=== PATIENT | male | born 2005 | race Caucasian/White ===

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

== ENCOUNTER 2023-03-10 00:05 | Emergency (ER) | payer MEDICAID, SELFPAY ==
--- NOTE | 2023-03-10 | ECG_ITS ---
Test Reason : sob Blood Pressure : / mmHG Vent. Rate : 087 BPM Atrial Rate : 087 BPM P-R Int : 138 ms QRS Dur : 088 ms QT Int : 338 ms P-R-T Axes : 068 073 051 degrees QTc Int : 406 ms Normal sinus rhythm Normal ECG When compared with ECG of 26-JUL-2021 20:47, No significant change was found Referred By: Generic ED Physician Electronically Signed By:SHENG ROSADO MD
--- NOTE | ~2023-03-10 | XR_ITS ---
EXAMINATION: XR ABDOMEN KUB CLINICAL INDICATION: Constipated COMPARISON: 01/25/2022 TECHNIQUE: AP view of the abdomen. FINDINGS: Bowel gas pattern is nonobstructive. Moderate amount of stool is present. No suspicious calcifications are seen. There is limited assessment for free air with supine positioning. No suspicious calcifications are identified. Included lung bases are well-aerated. No acute osseous findings are seen. XR/XR KUB IMPRESSION: Moderate volume of stool. Nonobstructive bowel gas pattern.
[2023-03-10 00:24] LABS: Hematocrit 41.1 % (42.0-52.0); Hemoglobin 13.5 g/dl (14.0-18.0); Mean Corpuscular HGB Conc 32.8 g/dl (31.0-36.0); Mean Corpuscular Hemoglobin 28.1 pg (27.0-33.0); Mean Corpuscular Volume 85.6 fL (80.0-98.0); Mean Platelet Volume 9.6 fL (9.4-12.4); Platelet Count 219 X10*3/uL (160-400); Red Cell Distribution Width 13.3 % (11.0-16.0); White Blood Count 7.5 X10*3/uL (4.8-10.8)
[2023-03-10 00:29] VITALS: BP 113/69; PULSE 92; RESP 16; TEMP 37; O2SAT 98; BMI 17.6
[2023-03-10 00:46] LABS: Alanine Aminotransferase 9 U/L (0-40); Albumin Level 4.5 g/dL (3.5-5.0); Alkaline Phosphatase 76 U/L (39-117); Anion Gap 10 (12-20); Aspartate Amino Transferase 17 U/L (5-37); Blood Urea Nitrogen 12 mg/dL (9-16); Calcium 9.8 mg/dL (8.4-10.2); Carbon Dioxide 29 mmol/L (22-29); Chloride 105 mmol/L (96-108); Creatinine Clr Calc Pharmacy 91.1; Estimated Glomerular Filt Rate > 60; Glucose Random 170 mg/dL (60-115); Sodium 140 mmol/L (135-145)
[2023-03-10 00:47] LABS: Troponin-I High Sensitivity < 2.7 ng/L (<3.5-35.0)
[2023-03-10 04:54] VITALS: BP 122/75; PULSE 69; RESP 16; TEMP 36.4; O2SAT 99
--- OUTSIDE RECORDS SUMMARY | 2023-03-10 05:03 | XMS_ITS | Continuity of Care Document ---
Author Name Unknown Organization [facility] Gastro enterology Address Unknown Care Team Providers Care Chancery Clerk Name Role Phone Bisi Vega MD Primary Care Physician [id number] Date(s): 02/27/22 - 04/12/22 [facility] Attending Physician: Je Jackson MD Referring Physician: Bisi Vega MD Allergies, Adverse Reactions, Alerts No Known Allergies Medications Clonidine 0 Refills, Maintenance, 11/27/20 9:19:00 EST, Partial fill upon patient request if the prescriptionis for a schedule II opioid drug. Start Date: 11/27/20 Status: Ordered Dulcolax 5 mg oral enteric coated tablet 3 tablet = 15 mg, By Mouth, Once, Tale 3 Tablets as part of colonoscopy prep, 1 additional tablet in case patient loses one, # 4 tablet, 0 Refills, Soft Stop, 12/14/20 13:36:00 EST, [facility]/pharmacy #[id number], Partial fill upon patient request if the prescrip... Start Date: 12/14/20 Status: Ordered Dulcolax 5 mg oral enteric coated tablet 3 tablet = 15 mg, By Mouth, Once, # 3 tablet, 0 Refills, Soft Stop, 12/20/20 15:58:00 EST, [facility]pharmacy #[id number], Partial fill upon patient request if the prescription is for a schedule II opioid drug.,174.32, cm, 11/27/20 9:25:00 EST, Height, 49.98, kg... Start Date: 12/20/20 Status: Ordered Exlax chocholate squares - Senna Exlax chocholate squares - Senna, See Instructions, # 60 tablet, Refills 0, Tot. Refills 0, Maintenance, 1 square 1-2 times a day, 11/27/20 15:54:00 EST, Compound, 174.32, cm, 11/27/20 9:25:00 EST, Height, 49.98, kg, 11/27/20 9:25:00 EST, Dry Weight Start Date: 11/27/20 Status: Ordered guanFACINE 1 mg oral tablet See Instructions, Take 1/2 tablet By Mouth twice a day in am and at 3 pm, # 30 tablet, Refills 0, Tot. Refills 0, Maintenance, 10/23/16 13:05:13, Instructions Replace Required Details, Route to Pharmacy Electronically, [id number]... Start Date: 10/23/16 Status: Ordered MiraLax oral powder for reconstitution See Instructions, 255 Gm By Mouth Daily for one day, mixed in 2 quarts clear liquid for bowel prep,# 255 Gm, 0 Refills, Maintenance, 12/14/20 13:36:00 EST, [facility]/pharmacy #[id number], Partial fill upon patient request if the prescription is for a schedule II... Start Date: 12/14/20 Status: Ordered Omeprazole By Mouth, Daily, 0 Refills, Maintenance, 11/27/20 9:19:00 EST, Partial fill upon patient request ifthe prescription is for a schedule II opioid drug. Start Date: 11/27/20 Status: Ordered omeprazole 20 mg oral enteric coated capsule 1 capsule = 20 mg, By Mouth, 2 times a day, # 28 capsule, 6 Refills, Maintenance, 01/02/21 20:53:00EST, EC Capsule, [id number], Partial fill upon patient request if the prescription is for aschedule II opioid drug., 174.32, cm, 11/27/20 9:25... Start Date: 01/02/21 Stop Date: 04/10/21 Status: Ordered Prevacid SoluTab 30 mg oral tablet, disintegrating 1 tablet = 30 mg, By Mouth, Daily, # 30 tablet, 0 Refills, Maintenance, 11/27/20 15:54:00 EST, DIS Tablet, [id number], Partial fill upon patient request if the prescription is for a schedule II opioid drug., 174.32, cm, 11/27/20 9:25:00 EST, H... Start Date: 11/27/20 Status: Ordered Problem List Condition Effective Dates Status Health Status Inform ant Weight loss(Confirmed) Active
--- OUTSIDE RECORDS SUMMARY | 2023-03-10 05:04 | XMS_ITS | Continuity of Care Document ---
Author Name Unknown Organization [facility] Gastro enterology Address Unknown Care Team Providers Care Big Data Solutions Architect Name Role Phone Bisi Vega MD [id number] Date(s): 03/13/22 - 04/26/22 [facility]astroenter[facility] Attending Physician: Je Jackson MD Allergies, Adverse Reactions, Alerts No Known [...] 0 Refills, Soft Stop, 12/14/20 13:36:00 EST, [id number], Partial fill upon patient [...] Replace Required Details, Route to Pharmacy Electronically, [id number]... Start Date: 10/23/16 Status: Ordered MiraLax oral powder for reconstitution See Instructions, 255 Gm By Mouth Daily for one day, mixed in 2 quarts clear liquid for bowel prep,# 255 Gm, 0 Refills, Maintenance, 12/14/20 13:36:00 EST, [facility]/pharmacy #[id number], Partial fill upon patient request if [...]
--- OUTSIDE RECORDS SUMMARY | 2023-03-10 05:04 | XMS_ITS | Continuity of Care Document ---
Author Name Unknown Organization [facility] Gastro enterology Address [address] [place] [address]- Care Team Providers Care Pharmacist Apprentice Name Role Phone Bisi Vega MD Primary Care Physician [place] [facility] [place] [facility] [place]14[place] - 01/13/21 [facility]astroenter[facility] [address], [place] [address] Allergies, Adverse Reactions, Alerts No Known Medication Allergies Substance Reaction Severity Status NKA Active Medications amoxicillin 500 mg oral capsule 2 capsule = 1,000 mg, By Mouth, 2 times a day, for 14 days, # 56 capsule, 0 Refills, Acute 01/17/2120:53:00 EST, 01/02/21 20:53:00 EST, [id number], Partial fill upon patient request if the prescription is for a schedule II opioid drug., 174.3... Start Date: 01/02/21 Stop Date: 01/16/21 Status: Ordered Clonidine 0 Refills, Maintenance, 11/27/20 9:19:00 EST, [...] Dry Weight Start Date: 11/27/20 Status: Ordered Flagyl 500 mg oral tablet 1 tablet = 500 mg, By Mouth, Every 8 hours, for 14 days, # 42 tablet, 0 Refills, Acute 01/16/21 20:53:00 EST, 01/02/21 20:53:00 EST, Tablet, [facility]/pharmacy #[id number], Partial fill upon patient request if the prescription is for a schedule II opioid drug., 1... Start Date: 01/02/21 Stop Date: 01/16/21 Status: Ordered guanFACINE 1 mg oral tablet See Instructions, Take 1/2 tablet By Mouth twice a day in am and at 3 pm, # 30 tablet, Refills 0, Tot. Refills 0, Maintenance, 10/23/16 13:05:13, Instructions Replace Required Details, Route to Pharmacy Electronically, [id number]... Start Date: 10/23/16 Status: Ordered MiraLax oral powder for reconstitution = 17 Gm, By Mouth, Daily, for 30 days, # 255 Gm, 6 Refills, Hard Stop 06/25/21 15:54:00 EDT, 11/27/20 15:54:00 EST, [facility]/pharmacy #[id number], Partial fill upon patient request if the prescription is for a schedule II opioid drug., 174.32, cm, 11/27/20 9:25:... Start Date: 11/27/20 Stop Date: 06/25/21 Status: Ordered MiraLax oral powder for reconstitution See Instructions, 255 Gm By Mouth Daily for one day, mixed in 2 quarts clear liquid for bowel prep,# 255 Gm, 0 Refills, Maintenance, 12/14/20 13:36:00 EST, [id number], Partial fill [...]
--- OUTSIDE RECORDS SUMMARY | 2023-03-10 05:04 | XMS_ITS | Continuity of Care Document ---
Author Name Unknown Organization [facility] Gastro enterology Address [address] [place] [address]- Care Team Providers Care Can Filler Name Role Phone Bisi Vega MD Primary Care Physician Encounter [facility] [place] Date(s): 01/02/21 - 02/01/21 [facility]enter[facility] [address], [place] [address] Allergies, Adverse Reactions, Alerts No Known Medication Allergies Substance Reaction Severity Status NKA Active Medications Clonidine 0 Refills, Maintenance, 11/27/20 9:19:00 [...] Replace Required Details, Route to Pharmacy Electronically, [id number]... Start Date: 10/23/16 Status: Ordered MiraLax oral powder for reconstitution = 17 Gm, By Mouth, Daily, for 30 days, # 255 Gm, 6 Refills, Hard Stop 06/25/21 15:54:00 EDT, 11/27/20 15:54:00 EST, [facility]/pharmacy #[id number], Partial fill upon patient request [...] Refills, Maintenance, 11/27/20 15:54:00 EST, DIS Tablet, [facility]/pharmacy #[id number], Partial fill upon patient request if the prescription is for a schedule II opioid drug., 174.32, cm, 11/27/20 9:25:00 EST, H... Start Date: 11/27/20 Status: Ordered Problem List Condition Effective Dates Status Health Status Inform ant Weight loss(Confirmed) Active
--- OUTSIDE RECORDS SUMMARY | 2023-03-10 05:04 | XMS_ITS | Continuity of Care Document ---
Author Name Unknown Organization [facility] ter Address [address] [place] [address]- Care Team Providers Care Leather Sponger Name Role Phone Bisi Vega MD Primary Care Physician Encounter [facility] [place](s): 12/31/20 - 12/31/[address] [address] Discharge Disposition: A-D/C Home Attending Physician: Je Jackson MD Admitting Physician: Je Jackson MD Referring Physician: Je Jackson MD Allergies, Adverse Reactions, Alerts No Known Medication [...] Replace Required Details, Route to Pharmacy Electronically, [id number]... Start Date: 10/23/16 Status: Ordered MiraLax oral powder for reconstitution = 17 Gm, By Mouth, Daily, for 30 days, # 255 Gm, 6 Refills, Hard Stop 06/25/21 15:54:00 EDT, 11/27/20 15:54:00 EST, [id number], Partial fill upon patient [...] opioid drug. Start Date: 11/27/20 Status: Ordered Prevacid SoluTab 30 mg oral tablet, disintegrating 1 tablet = 30 mg, By Mouth, Daily, # 30 tablet, 0 Refills, Maintenance, 11/27/20 15:54:00 EST, DIS Tablet, [id number], Partial fill upon patient request if the prescription is for a schedule II opioid drug., 174.32, cm, 11/27/20 9:25:00 EST H... Start Date: 11/27/20 Status: Ordered Problem List Condition Effective Dates Status Health Status Inform ant Weight loss(Confirmed) Active Vital Signs Most recent to oldest [Reference Range]: 1 2 3 Weight 49.6 kg (12/31/20 9:45 AM) Oxygen Saturation [94-100 %] 100 % (12/31/20 12:18 PM) 100 % (12/31/20 11:58 AM) 100 % (12/31/20 11:55 AM) Pulse Rate [55-90 bpm] 108 bpm *H* (12/31/20 9:45 AM) Blood Pressure [80-130/50-80 mm Hg] 110/78mm Hg (12/31/20 12:11 PM) 122/84mm Hg (12/31/20 11:34 AM) 136/75mm Hg *H* (12/31/20 9:45 AM) Respiratory Rate [16-30 br/min] 15 br/min *L* (12/31/20 11:55 AM) 21 br/min (12/31/20 11:34 AM) 20 br/min (12/31/20 9:45 AM) Temperature [96.8-100.4 DegF] 98.3 DegF (12/31/20 9:45 AM) Mode of Delivery (Oxygen) Room air (12/31/20 9:45 AM) Blood pressure sites Arm, left (12/31/20 9:45 AM) Temperature Route Oral (12/31/20 12:11 PM) Oral (12/31/20 9:45 AM) Dry Weight 49.6 kg (12/31/20 9:45 AM)
--- OUTSIDE RECORDS SUMMARY | 2023-03-10 05:04 | XMS_ITS | Continuity of Care Document ---
Author Name Unknown Organization [facility] Address [address] [place] [address]- Care Team Providers Care Patient Access Manager Name Role Phone Bisi Vega MD Primary Care Physician En[place] [facility] [place](s): 01/10/21 - 02/09/21 [facility] [address] [place], [place] [address] Allergies, Adverse Reactions, Alerts No Known [...] Replace Required Details, Route to Pharmacy Electronically, [id number]... Start Date: 10/23/16 Status: Ordered MiraLax oral powder for reconstitution = 17 Gm, By Mouth, Daily, for 30 days, # 255 Gm, 6 Refills, Hard Stop 06/25/21 15:54:00 EDT, 11/27/20 15:54:00 EST, [facility]/pharmacy #[id number], Partial [...] Refills, Maintenance, 11/27/20 15:54:00 EST, DIS Tablet, [facility]/pharmacy #[id number], Partial fill upon patient request if the prescription is for a schedule II opioid drug., 174.32, cm, 11/27/20 9:25:00 EST, H... Start Date: 11/27/20 Status: Ordered Problem List Condition Effective Dates Status Health Status Inform ant Weight loss(Confirmed) Active
--- OUTSIDE RECORDS SUMMARY | 2023-03-10 05:04 | XMS_ITS | Continuity of Care Document ---
Author Name Unknown Organization [facility] Address [address] [place] [address]- Care Team Providers Care Deputy Sheriff Custody Name Role Phone Bisi Vega MD Primary Care Physician [place] [facility] [place] [facility] [address] [place], [place] [address] Allergies, Adverse Reactions, Alerts [...] Replace Required Details, Route to Pharmacy Electronically, [id number]... Start Date: 10/23/16 Status: Ordered MiraLax oral powder for reconstitution = 17 Gm, By Mouth, Daily, for 30 days, # 255 Gm, 6 Refills, Hard Stop 06/25/21 15:54:00 EDT, 11/27/20 15:54:00 EST, [facility]/pharmacy #[id number], Partial fill upon patient request [...] 11/27/20 15:54:00 EST, DIS Tablet, [facility]/pharmacy #[id number], Partial fill upon patient request if the prescription is for a schedule II opioid drug., 174.32, cm, 11/27/20 9:25:00 EST, H... Start Date: 11/27/20 Status: Ordered Problem List Condition Effective Dates Status Health Status Inform ant Weight loss(Confirmed) Active
--- OUTSIDE RECORDS SUMMARY | 2023-03-10 05:04 | XMS_ITS | Continuity of Care Document ---
Author Name Unknown Organization [facility] ter Address [address] [place] [address]- Care Team Providers Care Trailer Rental Clerk Name Role Phone Bisi Vega MD Primary Care Physician [phone] Encounter [facility] [place] Date(s): 11/30/20 - 01/16/[address] [address] Attending Physician: Je Jackson MD Admitting Physician: Je Jackson MD Allergies, Adverse Reactions, [...] Replace Required Details, Route to Pharmacy Electronically, [id number]... Start Date: 10/23/16 Status: Ordered MiraLax oral powder for reconstitution = 17 Gm, By Mouth, Daily, for 30 days, # 255 Gm, 6 Refills, Hard Stop 06/25/21 15:54:00 EDT, 11/27/20 15:54:00 EST, [facility]/pharmacy #[id number], Partial fill upon patient request [...] Refills, Maintenance, 11/27/20 15:54:00 EST, DIS Tablet, [facility]/pharmacy #[id number], Partial fill upon patient request if the prescription is for a schedule II opioid drug., 174.32, cm, 11/27/20 9:25:00 EST, H... Start Date: 11/27/20 Status: Ordered Problem List Condition Effective Dates Status Health Status Inform ant Weight loss(Confirmed) Active
--- OUTSIDE RECORDS SUMMARY | 2023-03-10 05:04 | XMS_ITS | Continuity of Care Document ---
Author Name Unknown Organization [facility] Address [address] [place] [address]- Care Team Providers Care Faa Certified Powerplant Mechanic Name Role Phone Bisi Vega MD Primary Care Physician [place] [facility] [place] 12/27/20 [facility] [address] [place], [place] [address] Attending Physician: Rehan Bhatia Admitting Physician: Rehan Bhatia Referring Physician: Admtr, [id number] Allergies, Adverse Reactions, Alerts No Known Medication [...] Replace Required Details, Route to Pharmacy Electronically, [id number]... Start Date: 10/23/16 Status: Ordered MiraLax oral powder for reconstitution = 17 Gm, By Mouth, Daily, for 30 days, # 255 Gm, 6 Refills, Hard Stop 06/25/21 15:54:00 EDT, 11/27/20 15:54:00 EST, [facility]/pharmacy #[id number], Partial fill upon patient request if [...]
--- OUTSIDE RECORDS SUMMARY | 2023-03-10 05:04 | XMS_ITS | Continuity of Care Document ---
Author Name Unknown Organization [facility] Address Unknown Care Team Providers Care Molder Wax Ball Name Role Phone Bisi Vega MD Primary Care Physician [phone] Encounter [facility] [place] Date(s): 03/27/22 - 04/26/22 [facility] Attending Physician: Rehan Bhatia Admitting Physician: Rehan Bhatia Referring Physician: Rehan Bhatia Allergies, Adverse Reactions, Alerts No Known Allergies [...] 0 Refills, Soft Stop, 12/14/20 13:36:00 EST, [facility]/pharmacy #[id number], Partial fill upon patient request [...] Replace Required Details, Route to Pharmacy Electronically, [id number]... Start Date: 10/23/16 Status: Ordered MiraLax oral powder for reconstitution See Instructions, 255 Gm By Mouth Daily for one day, mixed in 2 quarts clear liquid for bowel prep,# 255 Gm, 0 Refills, Maintenance, 12/14/20 13:36:00 EST, [facility]/pharmacy #[id number], Partial fill upon patient request [...]
--- NOTE | 2023-03-10 05:38 | ED.GENADULT ---
HPI - General Adult General Chief complaint: General Medical Stated complaint: Chest pain x 1 week/Abd pain Time Seen by Provider: 03/10/23 05:38 Source: patient Mode of arrival: ambulatory Limitations: no limitations History of Present Illness HPI narrative: Patient history of constipation cannabis abuse anxiety comes here for diffuse abdominal pain and epigastric pain and chest pain for last 1 week last bowel movement was 3 days ago no nausea no vomiting no fever no chills Related Data Previous Rx's Medication Instructions Recorded omeprazole 20 mg capsule,delayed 20 mg PO DAILY #30 caps 07/26/21 release prednisone 20 mg tablet 20 mg PO DAILY 5 days #5 tabs 01/25/22 tamsulosin 0.4 mg capsule (Flomax) 0.4 mg PO DAILY #14 caps 01/25/22 polyethylene glycol 3350 17 17 g PO DAILY #510 grams 03/10/23 gram/dose oral powder (Miralax) Allergies Allergy/AdvReac Type Severity Reaction Status Date / Time No Known Allergies Allergy Verified 11/17/20 23:19 Review of Systems Review of Systems: Yes all other systems are reviewed and are negative [facility] Past Medical History Medical History No known health problems Patient denies significant medical history Social History Social History Smoked in Last 30 Days: No Use of substances other than those prescribed or required for medical reasons: No Advance Directives: No Advance Directives Information Provided: Yes Physical Exam ED Vital Signs: Vital Signs - 24 hr 03/10/23 00:29 03/10/23 04:54 Temperature 98.6 F 97.6 F Pulse Rate 92 69 Respiratory Rate 16 16 Blood Pressure 113/69 122/75 Pulse Oximetry 98 99 Oxygen Delivery Method Room Air Room Air BMI result Body Mass Index 17.6 Appearance: Alert. Oriented X3. No acute distress. ENT: Pharynx normal. Oral Mucosa moist Neck: Normal inspection. Neck supple. CVS: Normal heart rate and rhythm. Pulses normal. Respiratory: No respiratory distress. Equal air entry bilateral, no wheezing/rales/rhonchi Abdomen: Soft mild diffuse tenderness no rebound transfer cart Bowel sounds are present, no mass palpable, no CVA tenderness Skin: Skin warm and dry. Normal skin color. Normal skin turgor. Extremities: No lower extremity edema. No calf tenderness Neuro: Oriented X 3. Medications Administered Discontinued Medications Generic Name Dose Route Start Last Admin Trade Name Lisa PRN Reason Stop Dose Admin Bisacodyl 10 mg 03/10/23 06:03 03/10/23 06:15 Bisacodyl 5 Mg Tablet. PO 03/10/23 06:04 10 mg ONCE ONE Administration Magnesium Hydroxide 30 ml 03/10/23 06:03 03/10/23 06:16 Milk Of Magnesia 30 Ml Oral.Susp PO 03/10/23 06:04 30 ml ONCE ONE Administration Medical Decision Making Medical Decision Making [facility] Narrative: Patient with constipation and likely from constipation given MiraLax discharge patient home Lab Data [facility] Lab Attestation statement: I reviewed the patient's lab results. 03/10/23 00:15 03/10/23 00:15 Labs: Lab Results 03/10/23 03/10/23 03/10/23 Range/Units 00:15 00:15 00:15 WBC 7.5 (4.8-10.8) X10*3/uL RBC 4.80 (4.60-5.80) X10*6/uL Hgb 13.5 L (14.0-18.0) g/dl Hct 41.1 L (42.0-52.0) % MCV 85.6 (80.0-98.0) fL MCH 28.1 (27.0-33.0) pg MCHC 32.8 (31.0-36.0) g/dl RDW 13.3 (11.0-16.0) % Plt Count 219 (160-400) X10*3/uL MPV 9.6 (9.4-12.4) fL Absolute Nucleated RBC 0.000 (0.0-0.012) X10*3/uL Nucleated RBC % (auto) 0.0 (0.0-0.2) /100WBC Sodium 140 (135-145) mmol/L Potassium 4.0 (3.3-5.1) mmol/L Chloride 105 (96-108) mmol/L Carbon Dioxide 29 (22-29) mmol/L Anion Gap 10 L (12-20) BUN 12 (9-16) mg/dL Creatinine 0.97 (0.5-1.4) mg/dL Estim Creat Clear Calc 91.1 Estimated GFR > 60 Random Glucose 170 H (60-115) mg/dL Calcium 9.8 D (8.4-10.2) mg/dL Total Bilirubin 1.0 (0.0-1.0) mg/dL AST 17 (5-37) U/L ALT 9 (0-40) U/L Alkaline Phosphatase 76 (39-117) U/L Troponin I High Sens < 2.7 (<3.5-35.0) ng/L Total Protein 7.0 (6.5-8.0) g/dL Albumin 4.5 (3.5-5.0) g/dL Urine Color Urine Appearance Urine pH (5.0-9.0) Ur Specific [place] (1.005-1.025) Urine Protein (Neg-Trace) mg/dL Urine Glucose (UA) (Negative) mg/dL Urine Ketones (Negative) mg/dL Urine Blood (Negative) Urine Nitrite (Negative) Ur Leukocyte Esterase (Negative) Urine RBC (0-2) /HPF Urine WBC (0-5) /HPF Ur Squamous Epith Cells (0-2) /HPF Urine Bacteria (None Seen) Hyaline Casts (0-2) /LPF 03/10/23 Range/Units 06:01 WBC (4.8-10.8) X10*3/uL RBC (4.60-5.80) X10*6/uL Hgb (14.0-18.0) g/dl Hct (42.0-52.0) % MCV (80.0-98.0) fL MCH (27.0-33.0) pg MCHC (31.0-36.0) g/dl RDW (11.0-16.0) % Plt Count (160-400) X10*3/uL MPV (9.4-12.4) fL Absolute Nucleated RBC (0.0-0.012) X10*3/uL Nucleated RBC % (auto) (0.0-0.2) /100WBC Sodium (135-145) mmol/L Potassium (3.3-5.1) mmol/L Chloride (96-108) mmol/L Carbon Dioxide (22-29) mmol/L Anion Gap (12-20) BUN (9-16) mg/dL Creatinine (0.5-1.4) mg/dL Estim Creat Clear Calc Estimated GFR Random Glucose (60-115) mg/dL Calcium (8.4-10.2) mg/dL Total Bilirubin (0.0-1.0) mg/dL AST (5-37) U/L ALT (0-40) U/L Alkaline Phosphatase (39-117) U/L Troponin I High Sens (<3.5-35.0) ng/L Total Protein (6.5-8.0) g/dL Albumin (3.5-5.0) g/dL Urine Color Yellow Urine Appearance Clear Urine pH 6.5 (5.0-9.0) Ur Specific [place] >= 1.030 H (1.005-1.025) Urine Protein 30 (1+) H (Neg-Trace) mg/dL Urine Glucose (UA) Negative (Negative) mg/dL Urine Ketones Trace (Negative) mg/dL Urine Blood Negative (Negative) Urine Nitrite Negative (Negative) Ur Leukocyte Esterase Negative (Negative) Urine RBC 0-2 (0-2) /HPF Urine WBC 0-5 (0-5) /HPF Ur Squamous Epith Cells 0-2 (0-2) /HPF Urine Bacteria None Seen (None Seen) Hyaline Casts 0-2 (0-2) /LPF Independent Interpretation I performed an independent interpretation of an: EKG Interpretation: Normal sinus rhythm heart rate 87 beats per minute normal interval normal axis no acute vision or acute skin Discharge Plan Discharge Clinical Impression: Constipation Patient Disposition: Home, Self-Care Instructions: Constipation (ED) Additional Instructions: Drink plenty of fluids Stool softener as advised Follow with PCP Prescriptions: New polyethylene glycol 3350 [Miralax] 17 gram/dose powder 17 g PO DAILY Qty: 510 0RF No Action omeprazole 20 mg capsule,delayed release(DR/EC) 20 mg PO DAILY Qty: 30 0RF tamsulosin [Flomax] 0.4 mg capsule 0.4 mg PO DAILY Qty: 14 0RF prednisone 20 mg tablet 20 mg PO DAILY 5 Days Qty: 5 0RF Stand Alone Forms: Work/School Release
[2023-03-10 06:08] LABS: Appearance Urine Clear; Color Urine Yellow; Glucose Urine UA Negative (Negative); Leukocyte Esterase Urine Negative (Negative); Nitrite Urine Negative (Negative); PH 6.5 (5.0-9.0); Specific Gravity - Urine >= 1.030 (1.005-1.025); UMIC TRIGGER UACC YES; Urine Blood Negative (Negative); Urine Ketones Trace mg/dL (Negative); Urine Protein 30 (1+) mg/dL (Neg-Trace)
[2023-03-10 06:13] LABS: Bacteria Urine None Seen (None Seen); Hyaline Casts Urine 0-2 /LPF (0-2); RBC Urine 0-2 /HPF (0-2); Squamous Epithelial Cell Urine 0-2 /HPF (0-2); WBC Urine 0-5 /HPF (0-5)
[2023-03-10] MEDS: bisacodyL 5 MG TABLET.DR 10 MG PO (06:15)
[2023-03-10] MEDS: Milk of Magnesia 30 ML ORAL.SUSP PO (06:16)
== END 2023-03-10 07:08 | disposition home or self-care (01) ==
PROVIDERS: Emergency Provider Internal Medicine
DX: R07.89 Other chest pain (principal); K59.00 Constipation, unspecified; F12.10 Cannabis abuse, uncomplicated; R06.02 Shortness of breath; F41.9 Anxiety disorder, unspecified; Z79.899 Other long term (current) drug therapy
CPT/HCPCS: 36415; 74018; 80053; 81001; 84484; 85027; 93005; 99283; 99284

== ENCOUNTER → 2023-09-28 13:36 | Outpatient (BNVA) | payer MEDICAID, SELFPAY | PROVIDERS: Visit Provider Internal Medicine Cardiovascular Disease ==

== ENCOUNTER 2023-10-05 09:52 | Outpatient (AMB) | payer MEDICAID, SELFPAY ==
[2023-10-05 09:54] VITALS: BP 96/60; PULSE 70; BMI 19.3
--- NOTE | 2023-10-05 09:54 | MHC.OFFVIS ---
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 Generally healthy and does not have any major comorbidities. No history of any previously diagnosed cardiac issues. He states that he frequently gets chest pains randomly. Can happen any time. Sometimes also feels as though he can breathe normally. 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 Another occasion when he was working elsewhere and in a standing position. Not clear if it is orthostatic hypotension or not. He has been referred here for further evaluation. No major family history with regard to cardiac issues. No history specifically of any sudden cardiac in family. Otherwise, patient states that he does need to drink too much and per PCP note, there is mention that he might have been dehydrated on one occasion. Also, per PCP notes, also has anxiety and depression. [facility] Medical History (Updated 10/05/23 @ 10:04 by Bucky Browning MD) No known health problems Patient denies significant medical history Surgical History (Updated 10/05/23 @ 09:58 by Cecilia Mims) No pertinent past surgical history Family History (Updated 10/05/23 @ 10:06 by Bucky Browning MD) Mother FH: ovarian cancer Father Alcohol abuse (Updated 10/05/23 @ 09:57 by Cecilia Mims) Alcohol intake: current Alcohol intake frequency: holidays/special occasions only Patient Tobacco Use Status: Never used Tobacco Substance Use Type: Marijuana Review of Systems Const Denies chills, Denies daytime sleepiness, Denies fatigue, Denies fever(s), Denies frequent falls, Denies night sweats, Denies snoring, Denies weakness, Denies weight gain and Denies weight loss Eyes Denies loss of vision ENT Denies dizziness and Denies hearing loss Card Denies chest pain, Denies chest pain with activity, Denies syncope, Denies rapid heart rate, Denies edema, Denies claudication, Denies leg edema, Denies lightheadedness, Denies palpitations, Denies dyspnea, Denies dyspnea on exertion and Denies orthopnea Resp Denies cough, Denies excessive phlegm production, Denies dyspnea, Denies dyspnea on exertion, Denies snoring and Denies wheezing GI Denies abdominal pain, Denies hematochezia, Denies change in bowel habits, Denies change in stool character, Denies heartburn, Denies nausea and Denies vomiting Denies hematuria, Denies dysuria and Denies urinary frequency Musc Denies arthralgias, Denies muscle weakness, Denies numbness and Denies tingling Skin/Breast Denies nail changes and Denies rash Neuro Denies Abnormal speech present, Denies dizziness, Denies syncope, Denies frequent falls, Denies loss of vision, Denies memory loss, Denies numbness, Denies tingling and Denies weakness Psych Denies depression and Denies memory loss Endo Denies fatigue and Denies palpitations Aller/Immun Denies wheezing Physical Exam Vital Signs: Last Vital Signs Pulse 70 10/05/23 09:54 BP 96/60 10/05/23 09:54 BMI result Body Mass Index 19.3 Const General: comfortable and no acute distress Orientation/consciousness: patient oriented x3 HEENT Other: Unremarkable Head: Yes normal to inspection Neck Neck: Yes normal visual inspection Chest Chest palpation & inspection: normal inspection of the chest Resp Auscultation: clear to auscultation bilaterally Cardio Palpation: normal PMI Heart sounds: S1 normal heart sound present, S2 normal heart sound present, no gallops, no murmurs and no rubs GI Palpation (GI): Soft to palpation Back/Spine/Pelvis Other: unremarkable Skin General skin exam: no rashes or lesions noted Neuro General: patient oriented x3 Speech: No Abnormal speech present Extrem General: Yes normal to inspection Psych Mental Status: mental status grossly normal Office Procedures EKG Details: EKG with sinus rhythm at 69/Min; no significant ST-T changes and otherwise [place]remark[place] [id number], Complete Assessment & Plan Assessment & Plan (1) Precordial chest pain: Code(s): R07.2 - Precordial pain (2) SOB (shortness of breath): Code(s): R06.02 - Shortness of breath (3) Syncope and collapse: Code(s): R55 - Syncope and collapse Plan In the recent EKG from primary care physician, underlying rhythm is sinus at 74/Min; early repolarization type changes; no evidence of Brugada, long QT or WPW. Atypical chest pain; possible orthostatic hypotension/syncope. Will get an echocardiogram and tilt-table test for further evaluation. Otherwise, mainly reassurance. Adequate fluid intake. Orders: Orders CA echo transthoracic complete Today R55 - Syncope and collapse ECG Tilt Table Test Today R55 - Syncope and collapse Coding Level of Care Code New Pt Level 3 (91171) Diagnoses Precordial chest pain R07.2 SOB (shortness of breath) R06.02 Syncope and collapse R55 CPT Codes EKG - CPT: 63327-[id number], Complete ([id number])
== END 2023-10-05 10:10 | disposition home or self-care (01) ==
PROVIDERS: Visit Provider Internal Medicine
DX: R07.2 Precordial pain (principal); R06.02 Shortness of breath; R55 Syncope and collapse
CPT/HCPCS: 93010; 99203

== ENCOUNTER → 2023-10-05 09:52 | Outpatient (BNVA) | payer MEDICAID, SELFPAY | PROVIDERS: Visit Provider Internal Medicine | DX: R55 Syncope and collapse (principal); R07.2 Precordial pain; R06.02 Shortness of breath | CPT/HCPCS: 93005; 99202 ==

== ENCOUNTER → 2023-10-28 08:51 | Outpatient (REF) | payer MEDICAID, SELFPAY ==
--- NOTE | 2023-10-28 08:55 | CA_ITS ---
Transthoracic Echocardiogram Patient (Last, First, Middle): Oc Mims, Gender: Male Date of : 2005 Age: 17 Procedure Date: 10/28/2023 Procedure Type: Transthoracic Echocardiogram Location: OP Height: 177.8 cm Weight: 52.62 kg BSA: 1.66 m2 Heart Rate: bpm BP: 109 / 66 mmHg Power Plant Inspector: TO Referring MD: Bucky Browning MD Seafood Process Worker: Domingo Salgado MD Symptoms: R55 - Syncope and collapse Study Quality: Good ECG Rhythm: Sinus Conclusions: - Normal study Findings Left Ventricle Normal left ventricular size, thickness, and systolic function. The visually estimated ejection fraction is between 60-65%. Diastolic function is normal for age. Peak GLS is -19.5%, within normal limits. Right Ventricle Normal right ventricular cavity size and systolic function. Atria Both atria are normal in size. There is no evidence of interatrial shunt. Aortic Valve Normal aortic valve structure and function. There is no aortic valve stenosis. There is no aortic valve regurgitation. Mitral Valve Normal mitral valve structure and function. There is trace mitral valve regurgitation. There is no mitral valve stenosis. Pulmonic Valve The pulmonic valve is normal. There is trace to mild pulmonic valve regurgitation. Tricuspid Valve Normal tricuspid valve structure. There is trace tricuspid valve regurgitation. The right ventricular systolic pressure is normal. The right ventricular systolic pressure is 16 mmHg. Normal right atrial pressure. There is no evidence of pulmonary hypertension. Great Vessels All visible segments of the aorta are normal in size. The visualized portions of the pulmonary artery and branches are normal. Venous The inferior vena cava is normal in size and collapses greater than 50% with inspiration. Pericardium/Pleural There is no evidence of pericardial effusion. Prior Study Comparison No prior study available for comparison. Measurements 2D Linear Measurements IVSd: 0.79 0.6-0.9/0.6-1.0 cm LVIDd: 4.27 3.9-5.3/4.2-5.9 cm LVIDd Index: 2.57 2.4-3.2/2.2-3.1 cm/m2 LVIDs: 3.05 2.0-3.6 cm LVPWd: 0.79 0.7-1.1 cm LA Diam: 2.40 2.7-3.8/3.0-4.0 cm LAIDs Index: 1.45 1.5-2.3 cm/m2 LV Mass: 127.13 67-162/88-224 g LV Mass Index: 76.59 43-95/49-115 g/m2 LVOT Diam: 2.00 3.0+(-)1.3 cm Mitral Valve MV Pk E: 0.84 MV PK A: 0.81 MV Decel Time: 76.00 E/A: 1.00 E'Lateral: 19.00 E'Medial: 16.10 E/E' Med: 5.20 E/E' Lat: 4.40 PHT: 22.00 MVA PHT: 10.00 Decel Ogle: 11.07 Aortic Valve AoV Pk Justen: 1.03 AoV Mn Justen: 0.73 AoV VTI: 0.23 AoV Pk Grad: 4.00 Aov Mn Grad: 2.00 WILL Cont.VTI: 2.41 LVOT LVOT Pk Justen: 0.91 LVOT Mn Justen: 0.59 LVOT VTI: 0.17 LVOT Pk Grad: 3.00 LVOT Mn Grad: 2.00 LVOT Diam: 2.00 LVOT Area: 3.14 Diastolic Function MV Pk E: 0.84 MV Pk A: 0.81 E/A: 1.00 E'Medial: 16.10 E/E' Med: 5.20 E' Laterial: 19.00 E/E' Lat: 4.40 Right Ventricle TAPSE (mm): 23.40 TVS' Justen: 12.00 Tricuspid Valve TR Pk Justen: 1.83 TR Pk Grad: 13.00 RA Press: 3.00 RVSP: 16.00 Great Vessels Aorta Sinus of Valsalva: 2.54 2.0-3.5 cm Ao Asc: 2.30 2.1-3.4 cm Updated in Other Vendor System with Status of Final Domingo Salgado MD electronically signed on 10/28/2023 7:01:43 PM with status of Final
== END ==
LOC: HO.CARD 08:51
PROVIDERS: PCP Nurse Practitioner Primary Care; Visit Provider Internal Medicine
DX: R55 Syncope and collapse (principal)
CPT/HCPCS: 93306; 93356

== ENCOUNTER → 2023-10-28 08:55 | Outpatient (BNV) | payer MEDICAID, SELFPAY | PROVIDERS: PCP Nurse Practitioner Primary Care; Visit Provider Internal Medicine Cardiovascular Disease | DX: R55 Syncope and collapse (principal) | CPT/HCPCS: 93306 ==

== ENCOUNTER 2024-09-13 22:54 | Emergency (ER) | payer MEDICAID, SELFPAY ==
--- NOTE | 2024-09-13 | ECG_ITS ---
Test Reason : CP Blood Pressure : / mmHG Vent. Rate : 074 BPM Atrial Rate : 074 BPM P-R Int : 132 ms QRS Dur : 088 ms QT Int : 346 ms P-R-T Axes : 065 072 059 degrees QTc Int : 384 ms Normal sinus rhythm Normal ECG When compared with ECG of 10-MAR-2023 00:21, No significant change was found Referred By: Kelsi Royal Electronically Signed By:SHENG ROSADO MD
[2024-09-13 23:08] LABS: MANUAL DIFF FLAG NO
[2024-09-13 23:09] VITALS: BP 116/74; PULSE 77; RESP 16; TEMP 36.9; O2SAT 98; BMI 17.5
[2024-09-13 23:09] LABS: Basophils Percent Auto 0.4 % (0-2); Eosinophils Absolute Auto 0.1 X10*3/uL (0.0-0.4); Eosinophils Percent Auto 0.5 % (0-4); Hematocrit 40.3 % (42.0-52.0); Imm Gran Abs Auto 0.02 X10*3/uL (0.00-0.03); Imm Gran Pct Auto 0.2 % (0.0-0.4); Lymphocytes Absolute Auto 1.3 X10*3/uL (1.2-4.9); Lymphocytes Percent Auto 13.9 % (20-40); Mean Corpuscular HGB Conc 34.7 g/dl (31.0-36.0); Mean Corpuscular Hemoglobin 29.7 pg (27.0-33.0); Mean Corpuscular Volume 85.4 fL (80.0-98.0); Mean Platelet Volume 9.7 fL (9.4-12.4); Monocytes Absolute Auto 0.7 X10*3/uL (0.1-1.2); Monocytes Percent Auto 7.3 % (2-11); Neutrophils Absolute Auto 7.1 x10*3/uL (2.0-8.3); Neutrophils Percent Auto 77.7 % (45-73); Platelet Count 199 X10*3/uL (160-400); Red Blood Count 4.72 X10*6/uL (4.60-5.80); Red Cell Distribution Width 12.9 % (11.0-16.0); White Blood Count 9.2 X10*3/uL (4.8-10.8)
[2024-09-13 23:22] LABS: Alanine Aminotransferase 17 U/L (0-40); Albumin Level 4.6 g/dL (3.5-5.0); Alkaline Phosphatase 72 U/L (39-117); Anion Gap 13 (12-20); Aspartate Amino Transferase 22 U/L (5-37); Bilirubin Total 1.1 mg/dL (0.0-1.0); Blood Urea Nitrogen 10 mg/dL (9-16); Calcium 9.9 mg/dL (8.4-10.2); Carbon Dioxide 27 mmol/L (22-29); Chloride 103 mmol/L (96-108); Creatinine Clr Calc Pharmacy 107.5; Estimated Glomerular Filt Rate > 60; Glucose Random 88 mg/dL (60-115); Potassium 3.5 mmol/L (3.3-5.1); Sodium 139 mmol/L (135-145); Total Protein 7.2 g/dL (6.5-8.0)
[2024-09-13 23:34] LABS: Troponin-I High Sensitivity < 2.7 ng/L (<3.5-35.0)
[2024-09-14 00:04] LABS: Influenza A PCR NEGATIVE (Negative); Influenza B PCR NEGATIVE (Negative); Resp Syncy Virus RNA Qual PCR NEGATIVE (Negative); SARS COV2 PCR INHOUSE NEGATIVE (Negative)
[2024-09-14 02:29] VITALS: BP 119/71; PULSE 84; RESP 16; TEMP 37.6; O2SAT 97
--- NOTE | 2024-09-14 02:32 | MHC.EDTECH ---
This pct just assumed care of Patient ,vitals taken ,Patient resting with eyes closed ,Plan of care continue .
[2024-09-14 04:05] VITALS: BP 121/72; PULSE 90; RESP 18; TEMP 38; O2SAT 100
--- NOTE | 2024-09-14 04:51 | ED_ITS ---
HPI - General Adult General Chief complaint: General Medical Stated complaint: Chest Pain/Syncope Time Seen by Provider: 09/14/24 04:44 Source: patient Mode of arrival: ambulatory Limitations: no limitations History of Present Illness ED Provider: Dr. Kelsi Royal HPI narrative: Patient comes to the emergency room complaining of numbness tingling that started on in his feet then in his shoulder and then in his calves and then started having abdominal bloating. All started while he was at work, prior to arrival. He denies any injuries. Denies fever chills, no chest pain or shortness of breath, no syncopal episodes. No nausea vomiting or diarrhea. Related Data Home Medications ?Medication ?Instructions ?Recorded ?Confirmed No Known Home Meds 10/05/23 10/05/23 Allergies Allergy/AdvReac Type Severity Reaction Status Date / Time No Known Allergies Allergy Verified 09/13/24 23:13 Review of Systems 2 Review of Systems: Constitutional : No Weight loss, No Fever, No Chills, No Night Sweats, No Fatigue, No Malaise ENT/Mouth : No Hearing loss, No Ear Pain, No Nasal Congestion, No Sinus Pain, No Hoarseness, No sore throat, No Rhinorrhea, No Swallowing Difficulty Eyes: No Eye Pain, No Swelling, No Redness, No Foreign Body, No Discharge, No Vision Changes Cardiovascular : No Chest Pain, No SOB, No Dyspnea on Exertion, No Orthopnea, No Edema, No Palpitations Respiratory : No Cough, No Sputum, No Wheezing, No Smoke Exposure, No Dyspnea Gastrointestinal : No Nausea, No Vomiting, No Diarrhea, No Constipation, No abdominal Pain, No Hematochezia, No Melena Genitourinary : no irregular bleeding, No Dysuria, No Urinary Frequency, No Hematuria, No Urinary Incontinence, No Urgency, No Flank Pain, No Urinary Flow Changes, No Hesitancy Musculoskeletal : Diffuse numbness tingling with no specific pattern No joint pain, No Myalgias, No Joint Swelling Skin : No Skin Lesions, No rash Neuro : No Weakness, No Numbness, No Paresthesias, No Loss of Consciousness, No Dizziness, No Headache Psych : No Anxiety/Panic, No Depression, No SI/HI/AH/VH, No Social Issues, Heme/Lymph: No Bruising, No Bleeding,No Lymphadenopathy Endocrine : No Polyuria, No Polydipsia, No Temperature Intolerance PMF Past Medical History Medical History No known health problems Patient denies significant medical history Surgical History (Updated 10/05/23 @ 09:58 by Cecilia Mims) No pertinent past surgical history Family History Family History (Updated 10/05/23 @ 10:06 by Bucky Browning MD) Mother FH: ovarian cancer Father Alcohol abuse Social History Social History (Updated 10/05/23 @ 09:57 by Cecilia Mims) Alcohol intake: current Alcohol intake frequency: 0-2 drinks per day Patient Tobacco Use Status: Never used Tobacco Smoked in Last 30 Days: No Substance Use Type: Marijuana Substance Use Frequency: Daily Last Used Substance: Just Prior to Admission Any prior treatment program specific to substance use: No Advance Directives: No Advance Directives Information Provided: Yes Do you have a plan to hurt others: No Plan Physical Exam ED Vital Signs: Vital Signs - 24 hr 09/13/24 23:09 09/14/24 02:29 09/14/24 04:05 Temperature 98.5 F 99.7 F 100.4 F Pulse Rate 77 84 90 Respiratory Rate 16 16 18 Blood Pressure 116/74 119/71 121/72 Pulse Oximetry 98 97 100 Oxygen Delivery Method Room Air Room Air Room Air BMI result Body Mass Index 17.5 Const Other: Appearance: Alert. Oriented X3. No acute distress. Eyes: Pupils equal, round and reactive to light. ENT: Pharynx normal. Neck: Normal inspection. Neck supple. No lymph nodes noted. No crepitus CVS: Normal heart rate and rhythm. Pulses normal. Normal S1 and S2 Respiratory: No respiratory distress. Breath sounds normal. No Wheezing. No rales Abdomen: Soft and nontender. No rigidity. No distention. Skin: Skin warm and dry. Normal skin color. Normal skin turgor. Extremities: No lower extremity edema. No Lacerations. No Rash Neuro: Oriented X 3. No motor deficit. No sensory deficit. Moving all extremities. No slurred speech. CN 2 through 12 grossly intact Psych: calm, cooperative, normal affect Medical Decision Making Medical Decision Making MDM Narrative: My interpretation of labs: Patient's hematology and chemistry within normal limits, LFTs negative, troponin negative, serology test negative. -my interpretation of EKG, sinus rhythm, heart rate 74, high-voltage EKG, previously seen in 2022, no new changes, QTC 384 -patient's description of paresthesias do not cover any specific neurological pattern. -I reviewed patient's past records, patient has been seen for cardiology for chest pain in the past, echocardiogram was normal. -I reviewed patient's cardiology note. Seems that PCP has documented that patient has history of anxiety and depression Lab Data MDM Lab Attestation statement: I reviewed the patient's lab results. 09/13/24 23:04 09/13/24 23:04 Labs: Lab Results 09/13/24 09/13/24 Range/Units 23:04 23:21 WBC 9.2 (4.8-10.8) X10*3/uL RBC 4.72 (4.60-5.80) X10*6/uL Hgb 14.0 (14.0-18.0) g/dl Hct 40.3 L (42.0-52.0) % MCV 85.4 (80.0-98.0) fL MCH 29.7 (27.0-33.0) pg MCHC 34.7 (31.0-36.0) g/dl RDW 12.9 (11.0-16.0) % Plt Count 199 (160-400) X10*3/uL MPV 9.7 (9.4-12.4) fL Immature Gran % (Auto) 0.2 (0.0-0.4) % Neut % (Auto) 77.7 H (45-73) % Lymph % (Auto) 13.9 L (20-40) % [place] % (Auto) 7.3 (2-11) % Eos % (Auto) 0.5 (0-4) % Baso % (Auto) 0.4 (0-2) % Lymph # (Auto) 1.3 (1.2-4.9) X10*3/uL [place] # (Auto) 0.7 (0.1-1.2) X10*3/uL Eos # (Auto) 0.1 (0.0-0.4) X10*3/uL Baso # (Auto) 0.0 (0.0-0.2) X10*3/uL Abs Immat Gran (auto) 0.02 (0.00-0.03) X10*3/uL Absolute Neuts (auto) 7.1 (2.0-8.3) x10*3/uL Absolute Nucleated RBC 0.000 (0.0-0.012) X10*3/uL Nucleated RBC % (auto) 0.0 (0.0-0.2) /100WBC Sodium 139 (135-145) mmol/L Potassium 3.5 (3.3-5.1) mmol/L Chloride 103 (96-108) mmol/L Carbon Dioxide 27 (22-29) mmol/L Anion Gap 13 (12-20) BUN 10 (9-16) mg/dL Creatinine 0.88 (0.5-1.4) mg/dL Estim Creat Clear Calc 107.5 Estimated GFR > 60 Random Glucose 88 (60-115) mg/dL Calcium 9.9 (8.4-10.2) mg/dL Total Bilirubin 1.1 H (0.0-1.0) mg/dL AST 22 (5-37) U/L ALT 17 (0-40) U/L Alkaline Phosphatase 72 (39-117) U/L Troponin I High Sens < 2.7 (<3.5-35.0) ng/L Total Protein 7.2 (6.5-8.0) g/dL Albumin 4.6 (3.5-5.0) g/dL Influenza Type A (PCR) NEGATIVE (Negative) Influenza Type B (PCR) NEGATIVE (Negative) RSV RNA Qual (PCR) NEGATIVE (Negative) SARS-CoV-2 RNA (RT-PCR) NEGATIVE (Negative) Independent Interpretation I performed an independent interpretation of an: EKG Radiology Impression Discussion of test interpretation with radiology: I have reviewed the radiologist's reading. Discharge Plan Discharge Clinical Impression: Paresthesias Patient Disposition: Home, Self-Care Instructions: Paresthesia (ED) Additional Instructions: Please follow-up with your primary care physician tomorrow. If you have any worsening or new symptoms, please return to the emergency room or call 911 Prescriptions: No Action No Known Home Meds Stand Alone Forms: Work/School Release Print Language: Sami
[2024-09-14 05:03] VITALS: BP 109/74; PULSE 81; RESP 18; TEMP 37.6; O2SAT 97
[2024-09-14] MEDS: Ibuprofen 600 MG TABLET PO (05:04)
[2024-09-14 05:11] VITALS: BP 109/74; PULSE 81; RESP 18; TEMP 37.6; O2SAT 97
== END 2024-09-14 05:14 | disposition home or self-care (01) ==
PROVIDERS: Emergency Provider Emergency Medicine
DX: R20.2 Paresthesia of skin (principal); Z03.818 Encounter for observation for suspected exposure to other biological agents ruled out
CPT/HCPCS: 0241U; 36415; 80053; 84484; 85025; 93005; 99283; 99284

== ENCOUNTER → 2024-09-13 22:59 | Outpatient (BNV) | payer MEDICAID, SELFPAY | PROVIDERS: Emergency Provider Emergency Medicine; Visit Provider Internal Medicine Cardiovascular Disease | DX: R07.9 Chest pain, unspecified (principal) | CPT/HCPCS: 93010 ==